=== PATIENT | female | born 1955 | race Asian ===

== ENCOUNTER 2017-01-22 00:21 | Emergency (ER) | payer BC ==
--- NOTE | 2017-01-22 00:28 | ED Physician Chart ---
Chief Complaint/HPI - Patient Information Date Seen:: 01/22/17 Time Seen:: 00:23 Chief Complaint:: ankle pain History of Present Illness:: 61-year-old female with acute, worse with weightbearing, moderate to severe, 8 out of 10 at worst, nonradiating, right ankle and lateral right foot pain that started about 1 hour ago after she suffered mechanical fall and twisted her right foot. Has associated swelling of the lateral ankle and bruising of the dorsum surface lateral foot. Also has acute, constant, worse with movement, mild to moderate, right shoulder pain that she also injured during the same fall. Denies any head injury, loss of consciousness, syncope, chest pain, palpitations. Historian:: Patient Review:: Nurse's Note Reviewed Review of Systems - Review of Systems Other: Complete system review otherwise unremarkable except as noted in history of present illness. Past Medical History - Past Medical History Past Medical History: No significant medical hx Family History: None Social History: Non Smoker, No Alcohol, No Drug Use Surgical History: None Psychiatricy History: None Medication: None Family Medical History - Family Member Mother History Unknown: Yes Physical Exam - Physical Examination Other:: INITIAL VITAL SIGNS: Reviewed by me GENERAL: Alert and interactive. No acute distress HEAD: Head is normocephalic and atraumatic EYES: EOMI. PERRL. No scleral icterus. No conjunctival injection ENT: Moist mucous membranes. NECK: Supple. No masses. Full range of motion RESPIRATORY: No tachypnea. Clear breath sounds bilaterally. No wheezing, rales, or rhonchi CV: Regular rate and rhythm. No murmurs, rubs, or gallops ABDOMEN: Soft, non-distended, non-tender. No guarding. No rebound. No masses. EXTREMITIES: Right foot has swelling over the lateral malleolus and bruising over the lateral dorsum. There is good neurovascular status to the distal right foot. Right shoulder has some pain with abduction greater than 90. There is good neurovascular status to the right upper extremity. SKIN: Warm and dry. No obvious rashes. NEUROLOGIC: Alert and oriented. Face is symmetric. Speech is normal. Moves all extremities equally. Motor and sensory distally intact. Labs/Radiology/EKG Results - Radiology Results Results: X-ray right Ankle 3V Interpreted by me: Bones: No fracture Joints: No dislocation Foreign Body: None X-ray right Shoulder 2V Interpreted by me: Bones: No fracture Joints: No dislocation Foreign body: None Assessment Splint Care: Splint applied, Splint obs Post Procedure/Splint Exam: No Active Bleeding Comments:: Right Posterior leg splint with Ortho-Glass applied by nursing staff. Post- splint check done by me Splint Assessment: Neurovascularly intact post splint placement with good fit. ED Septic Shock - . Is Septic Shock (SBP<90, OR Lactate>4 mmol\L) present?: No Reassessment (Disposition) - Reassessment Reassessment:: The patient took Tylenol prior to arrival. Pain improved. Patient has acute right foot pain and right shoulder pain after mechanical fall. X-rays did not indicate acute fracture at this time. However discussed with the patient these are preliminary results and that if the pain should persist a follow-up x-ray showed be done. Follow-up with primary care within 1-2 days. Return to ER precautions given. Patient understands and agrees with the plan. Blood pressure was noted to be elevated over 120/80. There were no signs of hypertension. Discussed the findings with the patient and recommended that the patient follow up with the primary care physician regarding the elevated blood pressure. Reassessment Condition:: Improved - Diagnosis Diagnosis:: Acute right foot pain due to acute right ankle sprain Acute right shoulder pain due to acute right shoulder sprain Elevated blood pressure without the diagnosis of hypertension - Aftercare/Follow up Instructions Aftercare/Follow-Up Instructions:: Counseled pt regarding lab results/diagnosis & need follow up, Refer to Discharge Instructions - Patient Disposition Discharge/Transfer:: Home Time:: 00:54 Condition at Disposition:: Improved ED Discharge Plan - Patient Disposition Admit/Discharge/Transfer: PT DISCHARGED HOME Condition at Disposition: Improved Instructions: Ankle Sprain, [id number], Shoulder Sprain
--- NOTE | 2017-01-22 10:51 | Diagnostic Imaging Report ---
Right shoulder (2 views) HISTORY: Pain, trauma No acute abnormalities. No fractures. No dislocation. Degenerative changes noted along the lateral margin of the humeral head and greater tuberosity. No acute pulmonary parenchymal processes are seen within the right lung. IMPRESSION: 1. No acute bony abnormalities 2. Degenerative changes
--- NOTE | 2017-01-22 10:51 | Diagnostic Imaging Report ---
Right ankle (3 views) HISTORY: Pain No acute abnormalities. No fractures. Degenerative spur formation noted along the articular surface of the distal tibia. Spur formation also noted off the dorsal and plantar aspects of the posterior calcaneus. IMPRESSION: 1. No acute abnormalities 2. Degenerative changes about the distal tibia 3. Calcaneal spur formation
== END 2017-01-22 01:10 | disposition home or self-care (01) ==
LOC: ER 00:21
DX: S93.401A Sprain of unspecified ligament of right ankle, initial encounter (principal); S43.401A Unspecified sprain of right shoulder joint, initial encounter; R03.0 Elevated blood-pressure reading, without diagnosis of hypertension; W19.XXXA Unspecified fall, initial encounter; Y93.89 Activity, other specified; Y92.89 Other specified places as the place of occurrence of the external cause; Y99.8 Other external cause status
CPT/HCPCS: 73030-TC-RT; 73610-RT-TC; Z7502